=== PATIENT | female | born 1995 | race Caucasian/White ===

== ENCOUNTER 2021-11-25 11:20 | Outpatient (RCR) | payer BC, SELFPAY ==
[2021-11-25 12:44] VITALS: BP 119/74; PULSE 101
== END 2021-12-09 08:11 | disposition home or self-care (01) ==
LOC: ANHOBOP 11:20
PROVIDERS: PCP Family Medicine; Visit Provider Obstetrics & Gynecology
DX: O36.8330 Maternal care for abnormalities of the fetal heart rate or rhythm, third trimester, not applicable or unspecified (principal); Z3A.38 38 weeks gestation of pregnancy
CPT/HCPCS: 59025

== ENCOUNTER 2021-12-05 20:25 | Inpatient (IN) | payer BC, SELFPAY ==
[2021-12-05] VITALS (11 sets, daily range): BP systolic 125–134; BP diastolic 73–90; PULSE 92–105; TEMP 36.4–37.6
--- OUTSIDE RECORDS SUMMARY | 2021-12-05 20:52 | XMS_ITS | Encounter Summary ---
:1995 Author Reason for Visit None recorded. Assessment and Plan 1. Medical examination for suspe cted condition ? US, obstetric, limited Discussion Note: None recorded.Patient educational handouts: No information available. Plan of Care Reminders Provider Appointments Ob Routine 12/11/2021 Marcia Babs 9:15AM MD [facility] ? Induction 12/11/2021 Marcia The rese 6:30AM MD [facility] ? Iop Colpo on or around Rodol fo James 01/05/2022 MD Jus Lab None ? ? recorded. Referral None ? ? recorded. Procedures None ? ? recorded. Surgeries None ? ? recorded. Imaging US, 10/07/2021 [place] Obstetric, Limited Medications Name Start Date ? ? ? Medications Administered None recorded. Vitals None recorded. Results Lab Results None recorded. Allergies Code Code System Name Reaction Severity Onset 4740 RxNorm Codeine ? ? ? Problems Name Status Onset Date Source ? Active 05/28/2021 ? Procedures Date Name Performed by ?
--- OUTSIDE RECORDS SUMMARY | 2021-12-05 20:52 | XMS_ITS | Encounter Summary ---
:1995 Author Reason for Visit OB visit Assessment and Plan Assessment Note Patient is ___weeks . Discu ssed plan. 1. Routine care Discussion Note: None recorded.Patient educational handouts: No [...] recorded. Surgeries None ? ? recorded. Imaging None ? ? recorded. Medications Name Start Date ? ? ? Medications Administered None recorded. Vitals Height Weight BMI Blood Pressure 5 ft 7 in 189 lbs 29.6 kg/m2 136/81 mm[Hg] Results Lab Results None recorded. Allergies Code Code System Name Reaction Severity Onset 2670 RxNorm Codeine ? ? ? Problems Name Status Onset Date Source ? Active 10
--- OUTSIDE RECORDS SUMMARY | 2021-12-05 20:52 | XMS_ITS | Encounter Summary ---
:1995 Author Reason for Visit None recorded. Assessment and Plan 1. COVID-19 ? US, obstetric, follow-up Discussion Note: None recorded.Patient educational handouts: No [...] Surgeries None ? ? recorded. Imaging US, 11/11/2021 [place] Obstetric, Follow-up Medications Name Start Date ? ? ? Medications Administered None recorded. Vitals None recorded. Results Lab Results None recorded. Allergies Code Code System Name Reaction Severity Onset 7110 RxNorm Codeine ? ? ? Problems Name Status Onset Date Source ? Active 05/28/2021 ? Procedures Date Name Performed by ?
--- OUTSIDE RECORDS SUMMARY | 2021-12-05 20:52 | XMS_ITS | Encounter Summary ---
:1995 Author Reason for Visit OB visit 30w5d Assessment and Plan 1. Routine care Discussion Note: None recorded.Patient [...] BMI Blood Pressure 5 ft 7 in 180 lbs 28.2 kg/m2 126/79 mm[Hg] Results Lab Results None recorded. Allergies Code Code System Name Reaction Severity Onset 1020 RxNorm Codeine ? ? ? Problems Name Status Onset Date Source ? Active 05/28/2021 ? Procedures Date Name Performed by ?
--- OUTSIDE RECORDS SUMMARY | 2021-12-05 20:52 | XMS_ITS | Encounter Summary ---
:1995 Author Reason for Visit None recorded. Assessment and Plan 1. Pre-existing maternal disease complicating ? US, obstetric, follow-up Discussion Note: None [...] Surgeries None ? ? recorded. Imaging US, 10/01/2021 [place] Obstetric, Follow-up Medications Name Start Date ? ? ? Medications Administered None recorded. Vitals None recorded. Results Lab Results None recorded. Allergies Code Code System Name Reaction Severity Onset 2850 RxNorm Codeine ? ? ? Problems Name Status Onset Date Source ? Active 05/28/2021 ? Procedures Date Name Performed by ?
--- OUTSIDE RECORDS SUMMARY | 2021-12-05 20:52 | XMS_ITS | Encounter Summary ---
[...] BMI Blood Pressure 5 ft 7 in 187 lbs 29.3 kg/m2 134/73 mm[Hg] Results Lab Results None recorded. Allergies Code Code System Name Reaction Severity Onset 2670 RxNorm Codeine ? ? ? Problems Name Status Onset Date Source ? Active 10
--- OUTSIDE RECORDS SUMMARY | 2021-12-05 20:52 | XMS_ITS | Encounter Summary ---
:1995 Author Reason for Visit OB visit Assessment and Plan 1. Routine care Discussion Note: None recorded.Patient educational handouts: No information available. Plan of Care Reminders Provider Appointments Ob Routine 12/11/2021 Marcia Babs 9:15AM MD [facility] ? Induction 12/11/2021 Marcia Salazar rese 6:30AM MD [facility] ? Iop Colpo on or around Rodol fo James 01/05/2022 MD J[facility] Lab None ? ? recorded. Referral None ? ? recorded. Procedures None ? ? recorded. Surgeries None ? ? recorded. Imaging None ? ? recorded. Medications Name Start Date ? ? ? Medications Administered None recorded. Vitals Height Weight BMI Blood Pressure 5 ft 7 in 186 lbs 29.1 kg/m2 130/77 mm[Hg] Results Lab Results None recorded. Allergies Code Code System Name Reaction Severity Onset 1470 RxNorm Codeine ? ? ? Problems Name Status Onset Date Source ? Active 05/28/2021 ? Procedures Date Name Performed by ?
--- OUTSIDE RECORDS SUMMARY | 2021-12-05 20:52 | XMS_ITS | Encounter Summary ---
[...] BMI Blood Pressure 5 ft 7 in 191 lbs 29.9 kg/m2 128/72 mm[Hg] Results Lab Results None recorded. Allergies Code Code System Name Reaction Severity Onset 2670 RxNorm Codeine ? ? ? Problems Name Status Onset Date Source ? Active 10
--- OUTSIDE RECORDS SUMMARY | 2021-12-05 20:52 | XMS_ITS | Encounter Summary ---
[...] BMI Blood Pressure 5 ft 7 in 190 lbs 29.8 kg/m2 135/77 mm[Hg] Results Lab Results None recorded. Allergies Code Code System Name Reaction Severity Onset 6130 RxNorm Codeine ? ? ? Problems Name Status Onset Date Source ? Active 05/28/2021 ? Procedures Date Name Performed by ?
--- OUTSIDE RECORDS SUMMARY | 2021-12-05 20:52 | XMS_ITS | Encounter Summary ---
:1995 Author Reason for Visit OB visit 28w4d Assessment and Plan 1. Routine care Discussion [...] BMI Blood Pressure 5 ft 7 in 176 lbs 27.6 kg/m2 126/79 mm[Hg] Results Lab Results None recorded. Allergies Code Code System Name Reaction Severity Onset 0940 RxNorm Codeine ? ? ? Problems Name Status Onset Date Source ? Active 05/28/2021 ? Procedures Date Name Performed by ?
--- OUTSIDE RECORDS SUMMARY | 2021-12-05 20:52 | XMS_ITS | Encounter Summary ---
[...] BMI Blood Pressure 5 ft 7 in 183 lbs 28.7 kg/m2 128/81 mm[Hg] Results Lab Results None recorded. Allergies Code Code System Name Reaction Severity Onset 5360 RxNorm Codeine ? ? ? Problems Name Status Onset Date Source ? Active 05/28/2021 ? Procedures Date Name Performed by ?
--- OUTSIDE RECORDS SUMMARY | 2021-12-05 20:52 | XMS_ITS ---
:1995 Author Care Team Providers Name Role Phone Anca Quinonez Primary Care Provider Unavailable Allergies Code Code System Name Reaction Severity Status Onset 2670 RxNorm Codeine ? ? Active ? Medications Name Status Start Date Stop Date ? ? Active ? Not available Problems Name Status Onset Date Source ? Active 05/28/2021 ? Procedures Date Name Performed by ? 05/28/2021 US, Obstetric, Nuchal Translucency Elizabeth gonzalez [address] [place] [address] ([address]) 07/23/2021 US, Obstetric, 2Nd or 3Rd Trimester Yanely peacock [address] [place] [address] ([address]) 07/23/2021 , Obstetric, Transvaginal [place] [address] [place] [address] ([address]) 08/06/2021 , Obstetric, Follow-up [place] [address] [place] [address] ([address]) 08/06/2021 , Obstetric, Transvaginal [place] [address] [place] [address] ([address])
--- NOTE | 2021-12-05 21:12 | LDADM ---
This patient, Jenn Marquez, was admitted to Labor/Delivery/Recovery 107 on 12/05/21 at 20:25. Plans for labor, pain management and were discussed with patient. Patient/family oriented to hospital policies and general routines including ID bracelet, bed and alarms, visiting hours, pain management, procedures, bathroom and other care routines, personal items, smoking policy, room service/diet and guest tray routines, infant security routines, and visiting hours. Patient/Family are encouraged to report perceived risks to care and to ask questions if they do not understand what they are told or what they should do. See OBIX for further documentation.
[2021-12-05 21:15] LABS: Basophils Percent Auto 0.2 % (0.2-1.2); Eosinophils Absolute Auto 0.1 K/mm3 (0-0.3); Eosinophils Percent Auto 1.1 % (0-4.4); Hematocrit 34.5 % (37.0-47.0); Hemoglobin 11.8 g/dL (12.0-15.0); Immature Granulocyte Absolute 0.04 K/mm3 (0.00-0.031); Immature Granulocyte Percent A 0.4 % (0-0.5); Lymphocytes Absolute Auto 1.65 K/mm3 (0.9-3.2); Lymphocytes Percent Auto 15.8 % (18.3-44.2); Mean Corpuscular HGB Conc 34.2 g/dl (32-36); Mean Corpuscular Hemoglobin 30.8 pg (26-34); Mean Corpuscular Volume 90.1 fl (80-100); Mean Platelet Volume 9.9 fl (7.4-10.4); Monocytes Absolute Auto 0.9 K/mm3 (0.1-0.6); Monocytes Percent Auto 8.3 % (2.6-8.5); Neutrophils Absolute Auto 7.7 K/mm3 (1.3-6.7); Neutrophils Percent Auto 74.2 % (45.5-73.1); Platelet Count Result 178 k/mm3 (150-375); Red Blood Count 3.83 M/mm3 (4.2-5.4); Red Cell Distribution Width 12.8 % (11.5-14.5); White Blood Count 10.4 K/mm3 (4.5-10.0)
[2021-12-06] VITALS (108 sets, daily range): BP systolic 86–156; BP diastolic 25–111; PULSE 79–121; RESP 16–18; TEMP 36–37.5; O2SAT 98–100
[2021-12-06] MEDS: OXYTOCIN 30 UNITS/NS 500 ML 30 UNITS/500 ML BAG 6 UNITS IV CONT (01:30)
[2021-12-06] MEDS: LACTATED RINGERS 1,000 ML 125 ML IV CONT ×3 (01:30→08:54)
[2021-12-06] MEDS: fentaNYL CITRATE INJ (*CRX) 100 MCG/2 ML VIAL IV PUSH ×2 (05:45→07:07)
[2021-12-06 06:33] LABS: Rapid Plasma Reagin Non-Reactive (NonReactive)
--- NOTE | 2021-12-06 07:18 | P.PNAN_ITS ---
Anes - Eval Pre Procedure Procedure: labor epidural Date/Time: 12/06/21 07:18 Surgeon: obdulia Preop Diagnosis: pain during labor Pre Op Diagnosis: Leaking Patient Data Age: 25 Gender: F Height: Weight: Last Vital Signs Temp 36.3 C L 12/06/21 05:45 Pulse 109 H 12/06/21 07:00 BP 138/107 H 12/06/21 07:00 Allergies Allergy/AdvReac Type Severity Reaction Status Date / Time codeine Allergy Swelling Verified 11/05/21 13:29 of Lip/Tongue/Throat Laboratory Tests 12/05/21 12/05/21 12/05/21 21:07 21:07 21:07 WBC 10.4 K/mm3 H K/mm3 (4.5-10.0) RBC 3.83 M/mm3 L M/mm3 (4.2-5.4) Hgb 11.8 g/dL L g/dL (12.0-15.0) Hct 34.5 % L % (37.0-47.0) MCV 90.1 fl fl (80-100) MCH 30.8 pg pg (26-34) MCHC 34.2 g/dl g/dl (32-36) RDW 12.8 % % (11.5-14.5) Plt Count 178 k/mm3 k/mm3 (150-375) MPV 9.9 fl fl (7.4-10.4) Immature Gran % (Auto) 0.4 % % (0-0.5) Neut % (Auto) 74.2 % H % (45.5-73.1) Lymph % (Auto) 15.8 % L % (18.3-44.2) Petroleum % (Auto) 8.3 % % (2.6-8.5) Eos % (Auto) 1.1 % % (0-4.4) Baso % (Auto) 0.2 % % (0.2-1.2) Lymph # (Auto) 1.65 K/mm3 K/mm3 (0.9-3.2) Petroleum # (Auto) 0.9 K/mm3 H K/mm3 (0.1-0.6) Eos # (Auto) 0.1 K/mm3 K/mm3 (0-0.3) Baso # (Auto) 0.0 K/mm3 K/mm3 (0.0-0.1) Abs Immat Gran (auto) 0.04 K/mm3 H K/mm3 (0.00-0.031) Absolute Neuts (auto) 7.7 K/mm3 H K/mm3 (1.3-6.7) Absolute Nucleated RBC 0.0 K/mm3 K/mm3 (0.0-0.012) Nucleated RBC % 0.0 % % (0.0-0.2) RPR Non-reactive (NonReactive) Blood Type A Positive Antibody Screen Negative Patient hx anesthesia problems: none Family hx anesthesia problems: none Results Review: All pre-operative results and documents have been reviewed as part of the pre-operative evaluation. [facility] Family History Family History (Updated 11/05/21 @ 13:30 by Micky Denton RN) Sibling Asthma Social History Social History Smoking status: Never smoker Substance use: never Spiritual care concerns: No Exam Day of Procedure 12/06/21 07:18
--- NOTE | 2021-12-06 07:33 | WPDOBADMIT ---
Obstetrics - Admit Note Admission Note: record reviewed. No pertinent additions to the history and/or any subsequent changes in the physical findings that are not consistent with the expected course of the were found. Patient arrived after SROM. Anticipate vaginal delivery. Additions to the history and/or subsequent changes in the physical findings follow. None.
--- NOTE | 2021-12-06 13:13 | P.PCNOB_ITS ---
OB - Delivery Note Procedure Delivery date: 12/06/21 Procedure: Vaginal delivery Induction method: None Delivery augmentation: Pitocin Delivery monitor: External FHT and External Uterine Route of delivery: Laceration Description: Perineal - 1st Degree Delivery repair: vicryl Specimen: Yes Quantitative Blood Loss (ml): 107 Anesthesia type: Epidural Disposition: Floor [place] Baby Date of : 12/06/21 Time of : 12:52 Weeks of gestation at delivery: 40 gender: Female Weight (pounds): 8 Weight (ounces): 1 presentation: vertex position: Left Occiput Anterior Placenta delivery description: Spontaneous Cord Vessel Description: 3 Vessels and Delayed Cord Clamping (3 mins) score one minute: 8 score five minutes: 9 Narrative: mom and baby skin to skin in stable condition.
[2021-12-06] MEDS: OXYTOCIN 30 UNITS/NS 500 ML 30 UNITS/500 ML BAG 125 UNITS IV CONT (13:26)
--- NOTE | 2021-12-06 15:35 | OBPPTRN ---
Patient transferred to post room #282 via wheelchair. Support person and baby present. Oriented to unit, room, information board, rooming in, admission packet and security measures. Patient verbalizes understanding.
[2021-12-06] MEDS: LANOLIN (LANSINOH) 7.5 GM CREAM 1 APPLIC TOPICAL (19:28)
[2021-12-06] MEDS: IBUPROFEN 600 MG TABLET PO (19:29)
[2021-12-06] MEDS: ACETAMINOPHEN 325 MG TABLET 650 MG PO (19:29)
[2021-12-07 04:00] VITALS: BP 108/68; PULSE 84; RESP 18; TEMP 36.7
[2021-12-07 05:43] LABS: Hematocrit 29.9 % (37.0-47.0); Hemoglobin 10.1 g/dL (12.0-15.0)
--- NOTE | 2021-12-07 07:54 | PM.OBPNVD ---
OB - PN: Subj Subjective Date/time seen: 12/07/21 07:54 Patient comments: no complaints and pain well controlled baby status: doing well and nursing well [place] feeding status: exclusively breast feeding Narrative: Doing well. would like DC today. No concerns. OB - PN: Obj Data Labs CBC & Chem 7: 12/07/21 04:59 Labs: Laboratory Results - last 24 hr 12/07/21 04:59 Hgb 10.1 L Hct 29.9 L OB - PN A/P Assessment and Plan (1) , delivered: Code(s): O80 - Encounter for full-term uncomplicated delivery Status: Acute Plan day: 1 Plan: routine care and discharge home Comments: DC home if baby ok for DC instructions given Time Spent With Patient Time: Total time spent is greater than 50% in coordination of care (as documented) at patient's floor/unit and/or counseling patient: Time with patient: less than 15 minutes Exam Narrative: NAD abdomen soft, nontender, fundus firm below the umbilicus Extremities nontender, 1+ edema
[2021-12-07 07:56] VITALS: BP 112/72; PULSE 90; RESP 16; TEMP 36.2; O2SAT 98
--- NOTE | 2021-12-07 08:00 | PM.OBDSVD ---
DS: Admitting Diagnosis Discharge Date 12/07/21 Admitting Diagnosis term , labor DS: Discharge Diagnosis Discharge Diagnosis (1) , delivered: Code(s): O80 - Encounter for full-term uncomplicated delivery Status: Acute OB - DS: Summary Hospital Course Hospital Course: Pt was admitted for labor and proceeded to have an uncomplicated vaginal delivery and course. OB Procedures : Ultrasound OB Procedures Intrapartum: Spontaneous Vag Delivery OB Procedures: : None Peripartum Data Delivery Method: Natural Vaginal complications: none Status at Discharge Functional status at discharge: independent ambulation Time Spent with Patient Time attestation: Total time spent providing and/or coordinating discharge services: Exam Narrative: NAD abdomen soft, appropriately tender Ext non tender, 1+ edema DS: Data Data Completed and Pending Pending studies at discharge: Pending at discharge 12/06/21 13:23 Surgical [PTH] Routine Labs on day of discharge: Labs from last 24 hours 12/07/21 04:59 Hgb 10.1 L Hct 29.9 L Discharge Plan Discharge Attending physician on discharge: Marcia Velázquez Discharging Clinician: Marcia Velázquez Anticipated Discharge Date/Time: 12/07/21 14:00 Patient Disposition: Home, Self-Care Activity: pelvic rest Diet: regular Discharge Instructions: ibuprofen 600mg every 6 hours as needed Patient Instructions: Antibiotic Form Stand Alone Forms: General Discharge Information Follow-up/Referrals: Marcia Velázquez MD [Physician] - 4 Weeks Date of admission: 12/05/21 20:25 Primary Care Provider: Rufus Saravia Admitting Provider: Lukasz Luu Attending physician on admission: Lukasz Luu Condition: Stable
--- NOTE | 2021-12-07 10:42 | WPDANLDPN2 ---
Anes-Prog Note L&D Date/Time: 12/07/21 10:42 Comfortable throughout: labor and delivery Neuraxial method: epidural Epidural/Spinal procedure site: clean & non-tender Neuro status: Neuro function grossly intact. Cardiovascular status: normal Respiratory status: normal Airway patency: baseline Mental status: baseline Post-Op hydration status: normal Vital Signs: Last Vital Signs Temp 97.2 F L 12/07/21 07:56 Pulse 90 12/07/21 07:56 Resp 16 12/07/21 07:56 BP 112/72 12/07/21 07:56 Pulse Ox 98 12/07/21 07:56 Pain score (VAS): 0/10 I/O: Intake & Output 12/06/21 12/07/21 12/07/21 23:59 07:59 15:59 Intake Total 480 240 Balance 480 240 Post-procedural complaints: none Patient feedback: Patient satisfied with anesthetic care.
[2021-12-07] MEDS: BENZOCAINE 20% AER SPR (*SP) 56 GM CAN 1 SPRAY TOPICAL (11:08)
[2021-12-07] MEDS: WITCH HAZEL 40 PADS 1 PAD TOPICAL (11:08)
[2021-12-07] MEDS: MULTIVIT/MIN/PREN/FOL AC/IRON TABLET 1 TAB PO (11:09)
[2021-12-07] MEDS: DOCUSATE SODIUM 100 MG CAPSULE PO (11:09)
[2021-12-07 12:30] VITALS: BP 117/81; PULSE 80; RESP 19; TEMP 36.6; O2SAT 100
--- NOTE | 2021-12-07 16:00 | PC.NURSE ---
Patient instructed to view the discharge video Mother & Baby Care, The First Two Weeks . Patient was given the opportunity and encouraged to ask questions. Patient verbalized understanding of information shared and has been given the mother/baby guide for home reference.
== END 2021-12-07 16:30 | disposition home or self-care (01) | DRG 807 ==
LOC: ANHLDR 20:56 → ANHOB2 12-07 08:00 → ANHLDR 12-09 11:29 → ANHOB2 12-09 11:29
PROVIDERS: Advanced Practice Midwife; Admitting Provider Obstetrics & Gynecology; PCP Family Medicine; Visit Provider Obstetrics & Gynecology
DX: O36.8330 Maternal care for abnormalities of the fetal heart rate or rhythm, third trimester, not applicable or unspecified (principal); Z37.0 Single live birth; Z3A.40 40 weeks gestation of pregnancy; O70.0 First degree perineal laceration during delivery
CPT/HCPCS: 36415; 84112; 85014; 85018; 85025; 86592; 86850; 86900; 86901; 88307; A9270; J2590; J2795; J3010; J7120

== ENCOUNTER 2022-04-18 01:03 | Day surgery (SDC) | payer BC, SELFPAY ==
[2022-04-14 10:11] VITALS: BMI 24.8
--- NOTE | 2022-04-14 10:17 | PC.NURSE ---
Report to the Outpatient Waiting Room, entrance under the green pavilion located off [facility], at time 0600_ on date 04/18/22_. OR Time: _0730_. Time changes happen often and if your time is changed the preop area will call you the afternoon before. - You and your visitor will be asked to self-screen and do not enter if you have any COVID symptoms. - Only one visitor and NO children visitors are allowed at this time. - The patient visitor is requested to leave or wait in car when not with patient due to restrictions. - A mask is required within the hospital. Patients may have clear liquids (water, carbonated beverages, clear teas, apple juice) until 3 hours prior to surgery with a maximum of 20 ounces. - No food from midnight until time of surgery - Infants may have breast milk until 4 hours before surgery, infant formula 6 hours prior to surgery. - Children will be allowed to drink immediately following surgery. If applicable, please bring a bottle or sippy cup to assist with drinking. Juice, water, soda, and popsicles are readily available. For infants on formula, please bring formula the day of surgery. Pacifiers are allowed. Take the following medications with a SIP of water the morning of surgery: ____NONE Medications to discontinue per physician PRENATAL VITAMIN Date to take last dose 04/14/22 Please no make-up, nail azeri, hairspray, perfume, deodorant, or body powder the day of surgery. No jewelry (including any body piercings) or valuables the day of surgery, leave them at home. Please take a shower or bath the night before, or the morning of, surgery with an antibacterial soap. Wear comfortable, loose fitting clothing. Children are encouraged to wear pajamas. - Jewelry must be removed prior to entering the operating room. Rings and piercings that are not removed may be cut off. - The hospital will not accept responsibility for valuables. - Please leave all valuables, including medications, at home the day of surgery. If you are going home after surgery, a licensed wheelchair driver must drive you home. - NO public transportation without another adult. - We recommend that an adult stay with you for 24 hours following discharge. - We also recommend that you do not drive, make important decision, drink alcoholic beverages, or take any drugs that were not prescribed by your health care provider for at least 24 hours after your discharge time. For Pediatric surgeries, we recommend two adults accompany the child home (only one inside the building at this time). Follow any additional instructions given to you from your surgeon. If you or anyone in your household have experienced Covid symptoms in the past week, please notify your surgeon or the nurse liaison at the phone number below for possible testing. Telephone instructions given to _PATIENT_and asked if any additional questions and then verbalized understanding. Patient advised to call surgeon office or pre surgery nurse liaison [phone] if any additional questions.
[2022-04-18 06:09] VITALS: BP 128/79; PULSE 79; RESP 16; TEMP 36.1; O2SAT 100
[2022-04-18] MEDS: ACETAMINOPHEN 500 MG TABLET 1000 MG PO (06:22)
[2022-04-18] MEDS: LACTATED RINGERS 1,000 ML 30 ML IV CONT (06:58)
--- NOTE | 2022-04-18 07:06 | P.PNAN_ITS ---
Anes - Initial Pre Proc Eval Procedure: Operation Date: 04/18/22 07:30 Proposed Procedures p Loop Electrical Excision Procedure - Marcia Velázquez MD Date/Time: 04/18/22 07:06 Surgeon: Marcia Velázquez MD Pre Op Diagnosis: yesenia-2 Patient Data Age: 26 Gender: F Height: 1.7 m Weight: 70.9 kg Last Vital Signs Temp 36.1 C L 04/18/22 06:09 Pulse 79 04/18/22 06:09 Resp 16 04/18/22 06:09 BP 128/79 04/18/22 06:09 Pulse Ox 100 04/18/22 06:09 O2 Del Method Room Air 04/18/22 06:09 Allergies Allergy/AdvReac Type Severity Reaction Status Date / Time codeine Allergy Severe Swelling Verified 04/18/22 06:25 of Lip/Tongue/Throat Home Medications Medication Instructions Recorded Confirmed Type no.58-iron bisglycinate 1 cap PO DAILY 04/14/22 04/18/22 History 10 mg iron-folic acid 400 mcg capsule Patient hx anesthesia problems: none Family hx anesthesia problems: none Results Review: All pre-operative results and documents have been reviewed as part of the pre- operative evaluation. PMFSH Family History Family History Sibling Asthma Social History Social History Smoking status: Never smoker Alcohol intake: current Drinks per week: 2 Substance use: never Living arrangements: with family Spiritual care concerns: No Anes - Eval Final PreProcedure Day of Procedure 04/18/22 07:06 Patient weight: normal Heart: regular rate and rhythm Lungs: clear to auscultation Airway: Mallampati scale class II Neurological: alert and oriented Last oral intake: >/= 8 hours ASA classification: II Emergent: no Anesthetic plan: proceed Anesthesia type and monitoring: general GIVS and standard monitoring Results Review: All pre-operative results and documents have been reviewed as part of the pre- operative evaluation. Informed Consent: The patient's anesthetic plan and its attendant risks and benefits were discussed with the patient/family/POA. Questions were solicited and answers provided to the satisfaction of the patient/family/POA.
--- NOTE | 2022-04-18 07:20 | PM.IMHP ---
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 ASCH pap last fall, HSIL this Mar. She has anxiety. She has not had Gardasil. Review of Systems Review of Systems: All systems reviewed & are unremarkable except as noted in HPI and below (HPI) PMFSH Family History Family History Sibling Asthma Social History Social History Smoking status: Never smoker Alcohol intake: current Drinks per week: 2 Substance use: never Living arrangements: with family Spiritual care concerns: No Meds Home Medications and Allergies Home Medications Medication Instructions Recorded Confirmed Type no.58-iron bisglycinate 1 cap PO DAILY 04/14/22 04/18/22 History 10 mg iron-folic acid 400 mcg capsule Allergies Allergy/AdvReac Type Severity Reaction Status Date / Time codeine Allergy Severe Swelling Verified 04/18/22 06:25 of Lip/Tongue/Throat Vital Signs Vital Signs - 24 hr 04/18/22 06:09 Temperature 96.9 F L Pulse Rate 79 Respiratory Rate 16 Blood Pressure 128/79 Pulse Oximetry 100 Oxygen Delivery Room Air Exam Const: General: no acute distress Resp: Effort & Inspection: normal respiratory effort Auscultation: clear to auscultation bilaterally Cardio: Rate: regular rate Rhythm: regular rhythm GI: GI Palp: Yes Soft to palpation Extrem: General: normal to inspection Assessment and Plan Assessment and plan (1) 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 Discussed RBA, consented. Also encouraged HPV vaccine noel. Will proceed.
--- NOTE | 2022-04-18 07:22 | WPDHPUPDATE1 ---
History and Physical Update Update Date/Time: 04/18/22 07:22 History and Physical has been reviewed, including an updated exam of the patient. There are NO changes in the patient's condition. Risks, benefits, and alternatives have been discussed and questions answered. Patient agrees to proceed with procedure.
[2022-04-18] MEDS: IODINE/POTASSIUM IODIDE 8 ML SOLUTION TOPICAL (07:44)
[2022-04-18] MEDS: FERRIC SUBSULFATE 8 ML SOLUTION WITH APPLICATOR TOPICAL (07:48)
[2022-04-18] MEDS: BUPIVACAINE/EPINEPHRINE 0.25% 50 ML VIAL 10 ML INFILTRATE (07:50)
--- NOTE | 2022-04-18 07:55 | W.PM.PROC2 ---
Procedure Note - Detailed Date of Procedure 04/18/22 Pre-op Diagnosis CIN2-3 Post-op Diagnosis Same Procedure Performed Loop Electrosurgical Excision Procedure Surgeon Marcia Velázquez MD [employer] Former Supervisor none Anesthesia MAC Indications CIN3 on cervical bx, CIN2 on ECC Findings dysplasia of both anterior and posterior lips of cervix Description of Procedure The patient was taken to the OR and placed in dorthal lithotomy in [facility]. She received MAC anesthesia. A coated speculum with attached suction was placed and 10cc of 0.25% marcaine with epinephrine was instilled in a paracervical block. Lugols solution was placed on the cervix to highlight the dysplastic cells. Using loop cautery set to 50 cut, the dysplastic area was excised and send to pathology, first the anterior lip, then the posterior lip. Ball cautery set to 50 coagulate was used for hemostasis, followed by Monsel's solution. The speculum was removed. The patient tolerated the procedure well. Estimated Blood Loss 10 Drains No Packing No Pathology Yes Complications No immediate complications Condition Stable Disposition Same day
[2022-04-18 08:00] VITALS: BP 111/55; PULSE 87; RESP 12; O2SAT 97
[2022-04-18 08:30] VITALS: BP 101/53; PULSE 54; RESP 12
== END 2022-04-18 08:40 | disposition home or self-care (01) ==
PROVIDERS: PCP Family Medicine; Visit Provider Obstetrics & Gynecology
PROC: 0UBC7ZZ Excision of Cervix, Via Natural or Artificial Opening (ICD-10-PCS; CPT 57522; principal; 2022-04-18 07:30)
DX: D06.1 Carcinoma in situ of exocervix (principal)
CPT/HCPCS: 57522; 88307; 88342; A9270; J2250; J2704; J3010; J7120

== ENCOUNTER 2023-08-28 11:12 | Outpatient (CLI) | payer BC, SELFPAY ==
[2023-08-28] VITALS (12 sets, daily range): BP systolic 109–115; BP diastolic 51–58; PULSE 98–108; O2SAT 95–99; BMI 30.2
[2023-08-28 12:14] LABS: Influenza A QL RT-PCR Negative (Negative); Influenza B QL RT-PCR Negative (Negative); RSV RNA, RT-PCR Negative (Negative); SARS-CoV-2 RNA PCR Negative (Negative)
== END 2023-08-28 12:16 | disposition home or self-care (01) ==
LOC: ANHOBOP 11:18 → ANHOBPP 11:19
PROVIDERS: Advanced Practice Midwife; PCP Family Medicine; Visit Provider Obstetrics & Gynecology
DX: O35.BXX0 Maternal care for other (suspected) fetal abnormality and damage, fetal cardiac anomalies, not applicable or unspecified (principal); Z20.822 Contact with and (suspected) exposure to COVID-19; Z3A.00 Weeks of gestation of pregnancy not specified
CPT/HCPCS: 59025; 87637; 99199

== ENCOUNTER 2023-09-11 14:15 | Outpatient (RCR) | payer BC, SELFPAY ==
[2023-09-11 15:08] VITALS: BP 133/72
== END 2023-12-10 23:59 | disposition home or self-care (01) ==
LOC: ANHOBOP 14:15
PROVIDERS: PCP Family Medicine; Visit Provider Obstetrics & Gynecology
DX: O36.8330 Maternal care for abnormalities of the fetal heart rate or rhythm, third trimester, not applicable or unspecified (principal); Z3A.39 39 weeks gestation of pregnancy
CPT/HCPCS: 59025; J2795

== ENCOUNTER 2023-09-18 05:47 | Inpatient (IN) | payer BC, SELFPAY ==
[2023-09-18] VITALS (67 sets, daily range): BP systolic 100–140; BP diastolic 53–98; PULSE 83–114; RESP 16–18; TEMP 36.3–36.8; O2SAT 98–100
[2023-09-18 06:48] LABS: Basophils Percent Auto 0.3 % (0.2-1.2); Eosinophils Absolute Auto 0.2 K/mm3 (0-0.3); Eosinophils Percent Auto 1.7 % (0-4.4); Hematocrit 35.3 % (37.0-47.0); Immature Granulocyte Absolute 0.05 K/mm3 (0.00-0.031); Immature Granulocyte Percent A 0.5 % (0-0.5); Lymphocytes Absolute Auto 1.66 K/mm3 (0.9-3.2); Lymphocytes Percent Auto 17.3 % (18.3-44.2); Mean Corpuscular Hemoglobin 30.8 pg (26-34); Mean Corpuscular Volume 90.5 fl (80-100); Mean Platelet Volume 9.6 fl (7.4-10.4); Monocytes Absolute Auto 0.7 K/mm3 (0.1-0.6); Monocytes Percent Auto 7.3 % (2.6-8.5); Neutrophils Percent Auto 72.9 % (45.5-73.1); Platelet Count Result 158 k/mm3 (150-375); Red Cell Distribution Width 13.9 % (11.5-14.5); White Blood Count 9.6 K/mm3 (4.5-10.0)
--- NOTE | 2023-09-18 06:50 | LDADM ---
This patient, Jenn Marquez, was admitted to Labor/Delivery/Recovery 105 on 09/18/23 at 05:47. Plans for labor, pain management and were discussed with patient. Patient/family oriented to hospital policies and general routines including ID bracelet, bed and alarms, visiting hours, pain management, procedures, bathroom and other care routines, personal items, smoking policy, room service/diet and guest tray routines, infant security routines, and visiting hours. Patient/Family are encouraged to report perceived risks to care and to ask questions if they do not understand what they are told or what they should do. See [facility]BI[facility] for further documentation.
[2023-09-18] MEDS: LACTATED RINGERS 1,000 ML 125 ML IV CONT ×2 (07:51→10:55)
[2023-09-18] MEDS: OXYTOCIN 30 UNITS/NS 500 ML 30 UNITS/500 ML BAG IV CONT (07:51)
--- NOTE | 2023-09-18 07:56 | WPDOBADMIT ---
Obstetrics - Admit Note Admission Note: record reviewed. No pertinent additions to the history and/or any subsequent changes in the physical findings that are not consistent with the expected course of the were found. Additions to the history and/or subsequent changes in the physical findings follow. Elective IOL SVE 1.5/90/-2 AROM moderate amount of clear, odorless fluid, anticipate vaginal delivery
--- NOTE | 2023-09-18 08:56 | WPDANESEPPF ---
Anes - Initial Pre Proc Eval Procedure: labor epidural Date/Time: 09/18/23 08:56 Surgeon: Lukasz Luu MD Pre Op Diagnosis: labor pain Pre Op Diagnosis: IOL Patient Data Age: 27 Gender: F Height: 1.7 m Weight: 87 kg Last Vital Signs Temp 36.3 C L 09/18/23 07:00 Pulse 102 H 09/18/23 08:30 BP 130/71 09/18/23 08:30 O2 Del Method Room Air 09/18/23 06:47 Allergies Allergy/AdvReac Type Severity Reaction Status Date / Time codeine Allergy Severe Swelling Verified 08/22/23 13:25 of Lip/Tongue/Throat Home Medications Medication Instructions Recorded Confirmed Type no.58-iron bisglycinate 1 cap PO DAILY 04/14/22 09/18/23 History 10 mg iron-folic acid 400 mcg capsule Laboratory Tests 09/18/23 06:24 WBC 9.6 K/mm3 (4.5-10.0) RBC 3.90 L M/mm3 (4.2-5.4) Hgb 12.0 g/dL (12.0-15.0) Hct 35.3 L % (37.0-47.0) MCV 90.5 fl (80-100) MCH 30.8 pg (26-34) MCHC 34.0 g/dl (32-36) RDW 13.9 % (11.5-14.5) Plt Count 158 k/mm3 (150-375) MPV 9.6 fl (7.4-10.4) Immature Gran % (Auto) 0.5 % (0-0.5) Neut % (Auto) 72.9 % (45.5-73.1) Lymph % (Auto) 17.3 L % (18.3-44.2) [place] % (Auto) 7.3 % (2.6-8.5) Eos % (Auto) 1.7 % (0-4.4) Baso % (Auto) 0.3 % (0.2-1.2) Lymph # (Auto) 1.66 K/mm3 (0.9-3.2) [place] # (Auto) 0.7 H K/mm3 (0.1-0.6) Eos # (Auto) 0.2 K/mm3 (0-0.3) Baso # (Auto) 0.0 K/mm3 (0.0-0.1) Abs Immat Gran (auto) 0.05 H K/mm3 (0.00-0.031) Absolute Neuts (auto) 7.0 H K/mm3 (1.3-6.7) Absolute Nucleated RBC 0.0 K/mm3 (0.0-0.012) Nucleated RBC % 0.0 % (0.0-0.2) RPR Pending Blood Type A Positive Antibody Screen Negative : gestational age (DAMIR 09/18/23) Patient hx anesthesia problems: none Family hx anesthesia problems: none Results Review: All pre-operative results and documents have been reviewed as part of the pre-operative evaluation. PMFSH Family History Family History Sibling Asthma Social History Social History Smoking status: Never smoker Alcohol intake: current Drinks per week: 2 Substance use: never Do You Feel Safe in your Home?: Yes Lack of Transportation: No Lack of Food: Never True Current Housing: I Have Housing Concerned About Future Housing: No Difficulty Paying Gas/Electric Bills: No Difficulty Paying for Meds: No Currently Unemployed: No Education: Bachelor's Degree Difficulty w/ Childcare or Family Care: No Living arrangements: with family Spiritual care concerns: No Anes - Eval Final PreProcedure Day of Procedure 09/18/23 08:56 Results Review: All pre-operative results and documents have been reviewed as part of the pre-operative evaluation. Informed Consent: The patient's anesthetic plan and its attendant risks and benefits were discussed with the patient/family/POA. Questions were solicited and answers provided to the satisfaction of the patient/family/POA.
--- NOTE | 2023-09-18 11:54 | PM.OBPRVD ---
OB - Vaginal Delivery Note Procedure Delivery date: 09/18/23 Induction method: AROM and Per Pitocin Protocol Delivery monitor: External FHT and External Uterine Route of delivery: Episiotomy description: None Laceration Description: None Specimen: No Quantitative Blood Loss (ml): 100 Anesthesia type: Epidural Disposition: Floor [place] Baby Date of : 09/18/23 Time of : 11:48 Weeks of gestation at delivery: 40 gender: Female presentation: vertex position: Left Occiput Anterior Placenta delivery description: Spontaneous Cord Vessel Description: 3 Vessels score one minute: 8 score five minutes: 9 Narrative: mother and baby skin to skin in stable condition
[2023-09-18] MEDS: OXYTOCIN 30 UNITS/NS 500 ML 30 UNITS/500 ML BAG 125 UNITS IV CONT (12:14)
[2023-09-18] MEDS: BENZOCAINE 20% AER SPR (*SP) 56 GM CAN 1 SPRAY TOPICAL (14:20)
[2023-09-18] MEDS: WITCH HAZEL 40 PADS 1 PAD TOPICAL (14:20)
[2023-09-18 16:55] LABS: Rapid Plasma Reagin Non-Reactive (NonReactive)
--- NOTE | 2023-09-18 17:10 | OBPPTRN ---
1445-Patient transferred to post room #276 via wheelchair. Support person present. Oriented to unit, room, information board, rooming in, admission packet and security measures. Patient verbalizes understanding.
[2023-09-18] MEDS: IBUPROFEN 600 MG TABLET PO (17:16)
[2023-09-18] MEDS: ACETAMINOPHEN 325 MG TABLET 650 MG PO (20:39)
[2023-09-19] MEDS: IBUPROFEN 600 MG TABLET PO ×2 (03:06→10:47)
[2023-09-19 03:34] VITALS: BP 113/76; PULSE 80; RESP 18; TEMP 36.6; O2SAT 100
[2023-09-19 05:32] LABS: Hematocrit 34.2 % (37.0-47.0); Hemoglobin 11.5 g/dL (12.0-15.0)
--- NOTE | 2023-09-19 08:02 | WPDANLDPN2 ---
Anes-Prog Note L&D Date/Time: 09/19/23 08:02 Comfortable throughout: labor and delivery Neuraxial method: epidural Epidural/Spinal procedure site: clean & non-tender Neuro status: Neuro function grossly intact. Cardiovascular status: normal Respiratory status: normal Airway patency: baseline Mental status: baseline Post-Op hydration status: normal Vital Signs: Last Vital Signs Temp 36.6 C 09/19/23 03:34 Pulse 80 09/19/23 03:34 Resp 18 09/19/23 03:34 BP 113/76 09/19/23 03:34 Pulse Ox 100 09/19/23 03:34 O2 Del Method Room Air 09/18/23 16:00 Pain score (VAS): 10 I/O: Intake & Output 09/18/23 09/19/23 09/19/23 23:59 07:59 15:59 Intake Total 250 Balance 250 Post-procedural complaints: none Patient feedback: Patient satisfied with anesthetic care.
--- NOTE | 2023-09-19 08:53 | PM.OBPNVD ---
OB - PN: Subj Subjective Date/time seen: 09/19/23 08:53 Interval history: pp day 1 doing well wants d/c home OB - PN: Obj Data Labs 09/19/23 03:17 Labs: Laboratory Results - last 24 hr 09/18/23 09/19/23 06:24 03:17 Hgb 11.5 L Hct 34.2 L RPR Non-reactive OB - PN A/P Plan day: 1 Plan: routine care and discharge home Time Spent With Patient Time: Total time spent is greater than 50% in coordination of care (as documented) at patient's floor/unit and/or counseling patient: Review of Systems Review of Systems: All systems reviewed & are unremarkable except as noted in HPI and below Exam Const: General: cooperative and healthy appearing Resp: Effort & Inspection: normal respiratory effort Cardio: Rate: regular rate Back/Spine/Pelvis: Back: no CVA tenderness Skin: General skin exam: normal color Extrem: Right lower extremity: normal to inspection Left lower extremity: normal to inspection
--- NOTE | 2023-09-19 08:55 | P.DS_ITS ---
DS: Admitting Diagnosis Discharge Date 09/19/23 Admitting Diagnosis IOL DS: Discharge Diagnosis Discharge Diagnosis (1) Vaginal delivery: Code(s): O80 - Encounter for full-term uncomplicated delivery Status: Acute OB - DS: Summary OB Procedures : None OB Procedures Intrapartum: Spontaneous Vag Delivery OB Procedures: : None Peripartum Data Laceration Description: None Episiotomy description: None Time Spent with Patient Time attestation: Total time spent providing and/or coordinating discharge services: DS: Data Data Completed and Pending Labs on day of discharge: Labs from last 24 hours 09/19/23 09/18/23 03:17 06:24 Hgb 11.5 L Hct 34.2 L RPR Non-reactive Discharge Plan Discharge Attending physician on discharge: Lukasz Luu Discharging Clinician: Elizabeth Marino Patient Disposition: Home, Self-Care Activity: pelvic rest Diet: regular Patient Instructions: Antibiotic Form Stand Alone Forms: General Discharge Information Follow-up/Referrals: Elizabeth Marino, CNM [Certified Nurse Administrative Sales Assistant] - 4 Weeks Discharge Medications: New ibuprofen 600 mg Tablet 600 mg PO Q6H PRN (Reason: Cramping) Qty: 30 0RF Continued 10-400 mg-mcg Capsule 1 cap PO DAILY Date of admission: 09/18/23 05:47 Primary Care Provider: Rufus Saravia Admitting Provider: Lukasz Luu Attending physician on admission: Lukasz Luu Condition: Stable
[2023-09-19] MEDS: DOCUSATE SODIUM 100 MG CAPSULE PO (09:41)
[2023-09-19] MEDS: MULTIVIT/MIN/PREN/FOL AC/IRON TABLET 1 TAB PO (09:41)
[2023-09-19] MEDS: POLYSACCHARIDE IRON COMPLEX 150 MG CAPSULE PO (09:41)
[2023-09-19 09:56] VITALS: BP 115/78; PULSE 96; RESP 16; TEMP 36.4; O2SAT 99
--- NOTE | 2023-09-19 17:08 | PC.NURSE ---
On 09/19/23, the student, Alma Delia Shetty, provided care and completed [facility] documentation on this patient. I have reviewed the student's documentation and agree with the findings.
[2023-09-21 14:19] VITALS: BP 130/74; PULSE 69; RESP 20; TEMP 36.9; O2SAT 100
== END 2023-09-19 13:26 | disposition home or self-care (01) | DRG 807 ==
LOC: ANHLDR 05:49 → ANHOB2 15:00
PROVIDERS: Advanced Practice Midwife; Admitting Provider Obstetrics & Gynecology; PCP Family Medicine; Visit Provider Obstetrics & Gynecology
DX: O80 Encounter for full-term uncomplicated delivery (principal); Z37.0 Single live birth; Z3A.40 40 weeks gestation of pregnancy
CPT/HCPCS: 36415; 85014; 85018; 85025; 86592; 86850; 86900; 86901; A9270; J2590; J2795; J7120